=== PATIENT | female | born 1970 | race Caucasian/White ===

== ENCOUNTER 2016-09-13 10:28 | Emergency (ER) | payer OTHER ==
[2016-09-13 11:07] VITALS: BP 108/77; PULSE 84; RESP 18; TEMP 97.5; O2SAT 96
--- NOTE | 2016-09-13 11:22 | UCPHY ---
H & P Time Seen by Provider: 09/13/16 10:43 Patient Type: New HPI/ROS: HPI Headache, nasal congestion, fatigue, sore throat, cough. 45-year-old female by private vehicle. She complains of intermittent dull gradual onset headache, nasal congestion with clear rhinorrhea, fatigue, sore throat, nonproductive cough, sinus pressure ongoing for the last 5 days. She is traveling to [facility] on Monday to visit her parents. She is concerned that her symptoms are still present. ROS: Constitutional: As above. Eyes: No discharge. No changes in vision. ENT: As above. Respiratory: As above. No shortness of breath. Cardiac: No chest pain, no palpitations. Gastrointestinal: No abdominal pain, no vomiting, no diarrhea. Genitourinary: No hematuria. No dysuria or increased frequency with urination. Musculoskeletal: No back pain. No neck pain. No myalgias or arthralgias. Skin: No rashes. Neurological: As above. No focal weakness or altered sensation. Past medical history: Denies any significant past medical history. Social history: Here by herself. As above. Physical Exam: General Appearance: Alert, no distress. This patient is responding to questions appropriately and in full sentences. This patient appears well- hydrated and well-nourished. Eyes: Pupils equal and round no pallor or injection. No lid edema, erythema or injection. ENT, Mouth: Mucous membranes are moist. The pharyngeal tissues are unremarkable. No edema or swelling. No asymmetry suggestive of abscess. No erythema or exudates. She does not have significant tenderness on palpation of her maxillary or frontal sinuses. No associated soft tissue changes to these areas such as warmth or erythema. Respiratory: There are no retractions, lungs are clear to auscultation with good air movement bilaterally. Cardiovascular: Regular rate and rhythm. No murmur. Neurological: Motor sensory function is grossly intact. Cranial nerves are normal. Gait is normal. Skin: Warm and dry, no rashes. Musculoskeletal: Neck is supple and nontender. No pain on flexion of the neck. No cervical, submandibular, submental lymphadenopathy. Extremities are symmetrical. All joints range without pain or impingement. Psychiatric: No agitation. No depression. Database: EKG: Imaging: Procedures: Emergency department course: After my evaluation, explained to the patient that she likely had a viral syndrome, perhaps influenza. Symptoms have been ongoing for 5 days. Tamiflu is not indicated. I discussed this with her. I explained that her sinus pressure is most likely viral in nature. She is asking for an antibiotic. I discussed humidity, good hydration and nasal steroids for symptomatic relief. I explained I would write her prescription for an antibiotic and if her symptoms have not improved in 2-3 days with conservative management she could fill this. I discussed the risks of antibiotic administration. She understands these risks. She is in agreement with this plan. Return to Urgent Care/emergency department precautions discussed with her. Follow-up discussed. All of her questions were answered. She was discharged in good condition. Differential Diagnosis: The differential diagnosis on this patient includes but is not limited to influenza, viral syndrome, viral sinusitis. Serious bacterial infection unlikely. This represents a partial list of diagnoses considered. These considerations are based on history, physical exam, past history and reassessment. Smoking Status: Never smoked Constitutional: Initial Vital Signs Temperature (C) 36.4 C 09/13/16 11:05 Heart Rate 84 09/13/16 11:05 Respiratory Rate 18 09/13/16 11:05 Blood Pressure 108/77 09/13/16 11:05 O2 Sat (%) 96 09/13/16 11:05 O2 Delivery Mode Room Air Allergies/Adverse Reactions: No Known Allergies Allergy (Unverified 09/13/16 11:04) Home Medications: Medication Instructions Recorded Levothyroxine Sodium [Synthroid] 01/18/12 Amoxicillin/Clavulanate Pot 875 mg PO BID 7 Days 09/13/16 [Augmentin 875 mg tab] Fluticasone Nasal [Flonase Nasal 2 sprays NASAL DAILY #1 mdi 09/13/16 [facility] (RX)] MDM/Departure - Depart Disposition: Home, Routine, Self-Care Clinical Impression: Viral syndrome, Upper respiratory infection, Sinusitis Condition: Good Instructions: Upper Respiratory Infection (ED), Rhinosinusitis (ED) Additional Instructions: Read and follow provided instructions. Follow-up with your primary care physician in 1-2 days for re-evaluation as needed. Take medication as prescribed. Fill prescription for Augmentin, as discussed only if your symptoms have not improved with conservative management in 2-3 days Return to the emergency department for worsening symptoms, high fever, facial pain or swelling, worsening headache or other serious concerns. Prescriptions: Amoxicillin/Clavulanate Pot [Augmentin 875 mg tab] 875 mg PO BID 7 Days Fluticasone Nasal [Flonase Nasal [facility] (RX)] 2 sprays NASAL DAILY #1 mdi Referrals: NONE *PRIMARY CARE P,. [Primary Care Provider] - As per Instructions - PQRS PQRS Measurement: Not applicable.
== END 2016-09-13 11:31 | disposition home or self-care (01) ==
LOC: CED 10:28
DX: J06.9 Acute upper respiratory infection, unspecified (principal); J32.9 Chronic sinusitis, unspecified
CPT/HCPCS: 99203-PO; G0463-PO